=== PATIENT | female | born 2000 | race Caucasian/White ===

== ENCOUNTER 2020-02-15 13:47 | Outpatient (REF) | payer BC, SELFPAY | END 2020-02-15 13:48 | disposition home or self-care (01) | LOC: HO.LAB 13:47 | PROVIDERS: Visit Provider Internal Medicine | DX: Z20.828 Contact with and (suspected) exposure to other viral communicable diseases (principal) | CPT/HCPCS: C9803; U0003 ==

== ENCOUNTER 2023-10-19 11:33 | Outpatient (AMB) | payer BC, SELFPAY ==
[2023-10-19 12:48] VITALS: BP 118/78; PULSE 123; TEMP 37.2; O2SAT 98; BMI 28.3
--- NOTE | 2023-10-19 12:48 | MHC.OFFWIV ---
Intake Vital Signs 10/19/23 12:48 Height 5 ft 5 in Weight 170 lb BMI 28.3 BP 118/78 Blood Pressure Location Rt brachial Position Sitting Pulse 123 H Pulse Source Pulse Oximeter Temp 99.0 F Temp Source Oral Pulse Oximetry (%) 98 Oxygen Delivery Method Room Air Intake Visit Reasons: chest pain does have asthma Intake Note: pt c/o chest discomfort. Asthmatic. Started Thursday,Headache, coughing and bodyaches. States Rapid covid negative Patient Tobacco Use Status: Never used Tobacco Allergies ibuprofen [IBUPROFEN] Allergy (Intermediate, Verified 10/19/23 12:48) HIVES/FACIAL SWELLING Do you need a note to return to daycare/school/sports/work: No HPI chest pain does have asthma HPI Details This note is constructed using voice recognition software. While every effort has been made to ensure accuracy, sales and service technician errors may have been included. The patient is a 23 year old female who presents to the clinic today with cough. She notes that she is having epigastric and chest wall sensation that feels burning in nature and seems to be radiating upwards since Thursday. She has had coughing associated with this which does not seem to resolve with her albuterol inhaler. She denies shortness of breath, fever, chills, or any other viral URI symptoms. She denies chest pain, palpitations. She is moving her bowels normally. [facility] Social History Patient Tobacco Use Status: Never used Tobacco Review of Systems Const All systems reviewed & are unremarkable except as noted in HPI and below Physical Exam Vital Signs: Last Vital Signs Temp 99.0 F 10/19/23 12:48 Pulse 123 H 10/19/23 12:48 BP 118/78 10/19/23 12:48 Pulse Ox 98 10/19/23 12:48 Oxygen Delivery Method Room Air 10/19/23 12:48 BMI result Body Mass Index 28.3 Const General: cooperative, healthy appearing, comfortable, no acute distress and alert Orientation/consciousness: patient oriented x3 Limitations: no limitations HEENT Head: Yes normal to inspection and Yes normocephalic Ears: hearing grossly normal bilaterally General nose exam: Normal external nose present Face and sinus: Yes normal facial exam and Yes sinuses nontender Mouth: Normal oral and palatal mucosa present and tongue normal Teeth and gingiva: dentition normal Throat: Yes posterior oropharynx normal Eyes General: appearance normal, both eyes and all related structures Neck Neck: Yes normal visual inspection, Yes full ROM and Yes no lymphadenopathy Resp Effort & Inspection: normal respiratory effort and able to speak in complete sentences Auscultation: clear to auscultation bilaterally Cardio Jugular venous distension: no JVD Palpation: normal PMI Rate: regular rate Heart sounds: S1 normal heart sound present, S2 normal heart sound present, no click, no gallops, no murmurs and no rubs GI Inspection: Yes normal to inspection Palpation (GI): Soft to palpation and Tenderness to palpation present (GI) in the epigastrum Percussion: Yes normal to percussion Auscultation: normal bowel sounds Skin General skin exam: no rashes or lesions noted, elasticity normal and turgor normal Neuro General: patient oriented x3 Psych Appearance: grossly normal Mental Status: mental status grossly normal Speech and movement: Normal speech and movement present Affect: normal affect Assessment & Plan Assessment & Plan (1) Acid reflux: Code(s): K21.9 - Gastro-esophageal reflux disease without esophagitis Qualifiers: Esophagitis presence: without esophagitis Qualified Code(s): K21.9 - Gastro-esophageal reflux disease without esophagitis Plan: History and physical examination consistent with acid reflux, which may be triggering asthmatic type response. We will treat with famotidine, prescription sent to requested pharmacy. Advised patient to avoid acidic foods, carbonated beverages, or anything to eat or drink within 2-3 hours of lying down. Advised to try of the famotidine for the 1st 2 weeks and then transitioned to as needed after that. Follow up as needed with worsening or failure to resolve. Plan See above for full details and plan. Medications: New famotidine 40 mg PO DAILY 14 days 14 tabs 0RF Coding Level of Care Code Est Pt Level 3 (54263) Diagnoses Gastroesophageal reflux disease without esophagitis K21.9 Esophagitis presence: without esophagitis
== END 2023-10-19 13:17 | disposition home or self-care (01) ==
PROVIDERS: PCP Specialist; Visit Provider Registered Nurse
DX: K21.9 Gastro-esophageal reflux disease without esophagitis (principal)
CPT/HCPCS: 99213